=== PATIENT | female | born 1940 | race Caucasian/White ===

== ENCOUNTER → 2022-01-11 | Emergency (ER) | payer MEDICARE, OTHER ==
[~2022-01-11] MED LIST: CYCLOBENZAPRINE10 MG PO; NAPROSYN375 MG PO; NORCO 5-325 TA1 EACH PO
== END | disposition home or self-care (01) ==
LOC: FER 11:46
DX: S63.501A Unspecified sprain of right wrist, initial encounter (principal); W19.XXXA Unspecified fall, initial encounter; Y92.009 Unspecified place in unspecified non-institutional (private) residence as the place of occurrence of the external cause
CPT/HCPCS: 73090